=== PATIENT | female | born 1975 | race Caucasian/White ===

== ENCOUNTER 2017-11-09 16:00 | Emergency (ER) | payer OTHER ==
[2017-11-09] MEDS ORDERED: 0.9 % SODIUM CHLORIDE 1,000 ML BAG IV ONE (16:16)
[2017-11-09] MEDS ORDERED: METHYLPREDNISOLONE PF 125MG/VIAL IVP ONE (16:16)
[2017-11-09] MEDS ORDERED: DIPHENHYDRAMINE HCL IV 50 MG/ML VIAL IVP ONE (16:16)
[2017-11-09] MEDS ORDERED: LORAZEPAM 2 MG/ML VIAL IV ONE (16:16)
--- NOTE | 2017-11-09 16:22 | Emergency Department Record ---
History of Present Illness - General Chief Complaint: Chest Pain Stated Complaint: CHEST PAIN Time Seen by Provider: 11/09/17 16:11 Source: Patient Mode of Arrival: Ambulatory Limitations: No limitations - History of Present Illness Initial Comments: The patient is here due to developing a whole body rash, NIDA, and retrosternal CP after taking an Amoxicillin about 30 minutes ago. She also has had some nausea but denies any cough, congestion, or back pain. She states she has had Amox in the past and has never had any allergy issues. She describes the pain as a sharp burning retrosternally that is nonradiating. She has had no sweating with the rash or pain. The patient has multiple cardiac risk factors but has no hx of cardiac issues. The patient denies any feeling like her throat is closing or voice changes. Onset/Timin -: Minutes(s) Onset: During rest Pain Location: Substernal Pain Radiation: BRIE AVILES Severity scale (1-10): 8 Quality: Other Consistency: Constant Improves With: Nothing Worsens With: Nothing Context: Recent illness, Other Anginal Symptoms: Nausea Treatments Prior to Arrival: None - Related Data On Oral Contraceptives: (IUD) Home Medications Medication Instructions Recorded Confirmed Last Taken Alprazolam [Alprazolam] 1 mg PO ASDIR PRN 11/09/17 11/09/17 Unknown Amitriptyline HCl [Elavil] 10 mg PO ASDIR 11/09/17 11/09/17 Unknown Cyclobenzaprine HCl 10 mg PO ASDIR 11/09/17 11/09/17 Unknown Lisinopril/Hydrochlorothiazide 1 each PO DAILY 11/09/17 11/09/17 Unknown [Lisinopril-Hctz 10-12.5 mg Tab] Pantoprazole Sodium 40 mg PO DAILY 11/09/17 11/09/17 Unknown Tramadol HCl [Tramadol HCl] 50 mg PO ASDIR PRN 11/09/17 11/09/17 Unknown Allergies Allergy/AdvReac Type Severity Reaction Status Date / Time No Known Drug Allergies Allergy Verified 11/09/17 16:07 Travel Screening - Travel/Exposure Within Last 30 Days Have you traveled within the last 30 days?: No Review of Systems Constitutional: Denies: Chills, Fever Eyes: Denies: Eye discharge ENT: Reports: Ear pain. Denies: Congestion Respiratory: Denies: Cough Past Medical History - SOCIAL HISTORY Smoking Status: Never smoker Alcohol Use: None Drug Use: None - RESPIRATORY Hx Respiratory Disorders: No - CARDIOVASCULAR Hx Cardio Disorders: Yes Hx Hypertension: Yes - NEURO Hx Neuro Disorders: Yes Hx Headaches: Yes - GI Hx GI Disorders: Yes Hx Reflux: Yes - Hx Genitourinary Disorders: No - ENDOCRINE Hx Endocrine Disorders: No - MUSCULOSKELETAL Hx Musculoskeletal Disorders: Yes Hx Arthritis: Yes - PSYCH Hx Psych Problems: Yes Hx Anxiety: Yes - HEMATOLOGY/ONCOLOGY Hx Hematology/Oncology Disorders: No Family Medical History Any Significant Family History?: Yes Hx Heart Disease: Father, Mother, Brother/Sister, Grandparents Physical Exam - General General Appearance: Alert, Oriented x3, Cooperative, No acute distress - Head Head exam: Atraumatic, Normocephalic, Normal inspection - Eye Eye exam: Normal appearance, PERRL - ENT ENT exam: negative: TM's normal bilaterally (There is bilateraly erythema, effusions and a loss of landmarks on the L.) Throat exam: Normal inspection. negative: Tonsillar erythema, Tonsillar exudate - Neck Neck exam: Normal inspection, Full ROM. negative: Tenderness - Respiratory Respiratory exam: Normal lung sounds bilaterally. negative: Respiratory distress - Cardiovascular Cardiovascular Exam: Regular rate, Normal rhythm, Normal heart sounds - GI/Abdominal GI/Abdominal exam: Soft, Normal bowel sounds. negative: Tenderness - Extremities Extremities exam: Normal inspection, Full ROM, Normal capillary refill. negative: Tenderness - Neurological Neurological exam: Alert. negative: Motor sensory deficit - Skin Skin exam: Erythema (There is a diffuse body erythroderma that blanches.), Rash Course Vital Signs 11/09/17 16:01 Temperature 98.0 F Pulse Rate 124 H Respiratory 22 Rate Blood Pressure 156/80 Pulse Ox 97 - Reevaluation(s) Reevaluation #1: The patient is doing better at this time. Her pain is improving and she is feeling more relaxed. 11/09/17 16:31 Reevaluation #2: The patient is doing better. Her vitals are improved and the rash much improved. There is no nausea or NIDA but she is still having the retrosternal aching/burning. Due to the fact the patient has multiple cardiac risk factors I will order one SL NTG. 11/09/17 16:57 11/09/17 17:05 The patient is doing better after the SL NTG. The discomfort is almost gone. Reevaluation #3: The patient is doing very well at this time. Her BP and HR are very stable and the pain has resolved. 11/09/17 17:26 Reevaluation #4: I did discuss the case with Dr. Becerra and he did accept the patient as a direct admit to [facility]. 11/09/17 17:36 Medical Decision Making - Data Complexity MDM Data: Labs Ordered and/or Reviewed, X-Ray Ordered and/or Reviewed, EKG Ordered and/or Reviewed - Lab Data Result diagrams: 11/09/17 16:15 11/09/17 16:15 - EKG Data -: EKG Interpreted by Me (ST at 118. Anterior infarct old. Neg ST-T changes.) - Radiology Data Radiology results: Report reviewed (CXR: Neg per rad.) Disposition Disposition: Transfer Disposition: Acute Care Hospital Transfer Transfer To: [facility] Reason For Transfer: Cardiology Accepting Physician: Hernan Time Discussed w/Accepting Physician: 17:36 Condition: (2) Stable Forms: Patient Portal Access Time of Disposition: 17:36 Quality - Quality Measures Quality Measures: N/A - Blood Pressure Screening View Details: Yes Does Patient Have Any of the Following: Active Dx of HTN Blood Pressure Classification: Pre-Hypertensive BP Reading Systolic Measurement: 156 Diastolic Measurement: 80 Screening for High Blood Pressure: Patient Exclusion, Hx of HTN [G9744]
[2017-11-09] MEDS ORDERED: ASPIRIN 325 MG TABLET PO ONE (16:29)
[2017-11-09 16:38] LABS: HEMATOCRIT 41.5 % (35.0-47.0); HEMOGLOBIN 14.1 gm/dl (11.6-16.0); MEAN CELL VOLUME 85.7 fl (81-97); MEAN CORPUSCULAR HEMOGLOBIN 29.1 pg (27-33); MEAN PLATELET VOLUME 8.5 fl (7.4-10.4); PLATELET COUNT 376 K/uL (130-400); RED BLOOD COUNT 4.84 M/uL (3.80-5.40); RED CELL DISTRIBUTION WIDTH 14.9 % (11.5-14.5); WHITE BLOOD COUNT W/O DIFF 12.5 K/uL (4.2-12.2)
[2017-11-09] MEDS ORDERED: NITROGLYCERIN 0.4MG SL TABLET #25 BTL SL ONE (16:54)
[2017-11-09 17:00] LABS: BLOOD UREA NITROGEN 13 mg/dL (6-20); CREATININE 0.8 mg/dL (0.5-0.9); EST GLOMERULAR FILTRATION RATE > 60 mL/min; INR 0.9; PARTIAL THROMBOPLASTIN TIME 23.6 SECONDS (24.5-39.1); PROTHROMBIN TIME (PATIENT) 10.2 SECONDS (9.5-12.1)
[2017-11-09 17:03] LABS: GLUCOSE,RANDOM 150 mg/dL (74-109)
[2017-11-09 17:06] LABS: CREATINE PHOSPHOKINASE 87 U/L (26-192)
[2017-11-09 17:07] LABS: CKMB 1.9 ng/mL (<3.77)
[2017-11-09] MEDS ORDERED: MORPHINE SULFATE 5 MG/ML PFS IVP ONE (17:15)
--- NOTE | 2017-11-10 15:18 | RADIOLOGY REPORT ---
DATE: 11/09/2017. EXAM: PORTABLE CHEST. COMPARISON: None. HISTORY: Chest pain. TECHNIQUE: Portable AP upright view of the chest was performed. FINDINGS: Heart size is normal. Lung burger are clear. The osseous structures are normal. IMPRESSION: NEGATIVE CHEST EXAMINATION. JOB NUMBER: [id number] MTDD
--- NOTE | 2017-11-12 08:54 | Emergency Department Record ---
History of Present Illness - General Chief Complaint: Chest Pain Stated Complaint: CHEST PAIN Time Seen by Provider: 11/09/17 16:11 Source: Patient Mode of Arrival: Ambulatory Limitations: No limitations - History of Present Illness Onset/Timin -: Minutes(s) Onset: During rest Pain Location: Substernal Pain Radiation: RUEBRIE Severity scale (1-10): 8 Quality: Other Consistency: Constant Improves With: Nothing Worsens With: Nothing Context: Recent illness, Other Anginal Symptoms: Nausea Treatments Prior to Arrival: None - Related Data On Oral Contraceptives: (IUD) Home Medications Medication Instructions Recorded Confirmed Last Taken Alprazolam [Alprazolam] 1 mg PO ASDIR PRN 11/09/17 11/09/17 Unknown Amitriptyline HCl [Elavil] 10 mg PO ASDIR 11/09/17 11/09/17 Unknown Cyclobenzaprine HCl 10 mg PO ASDIR 11/09/17 11/09/17 Unknown Lisinopril/Hydrochlorothiazide 1 each PO DAILY 11/09/17 11/09/17 Unknown [Lisinopril-Hctz 10-12.5 mg Tab] Pantoprazole Sodium 40 mg PO DAILY 11/09/17 11/09/17 Unknown Tramadol HCl [Tramadol HCl] 50 mg PO ASDIR PRN 11/09/17 11/09/17 Unknown Allergies Allergy/AdvReac Type Severity Reaction Status Date / Time No Known Drug Allergies Allergy Verified 11/09/17 16:07 Travel Screening - Travel/Exposure Within Last 30 Days Have you traveled within the last 30 days?: No Review of Systems Constitutional: Denies: Chills, Fever Eyes: Denies: Eye discharge ENT: Reports: Ear pain. Denies: Congestion Respiratory: Denies: Cough Past Medical History - SOCIAL HISTORY Smoking Status: Never smoker Alcohol Use: None Drug Use: None - RESPIRATORY Hx Respiratory Disorders: No - CARDIOVASCULAR Hx Cardio Disorders: Yes Hx Hypertension: Yes - NEURO Hx Neuro Disorders: Yes Hx Headaches: Yes - GI Hx GI Disorders: Yes Hx Reflux: Yes - Hx Genitourinary Disorders: No - ENDOCRINE Hx Endocrine Disorders: No - MUSCULOSKELETAL Hx Musculoskeletal Disorders: Yes Hx Arthritis: Yes - PSYCH Hx Psych Problems: Yes Hx Anxiety: Yes - HEMATOLOGY/ONCOLOGY Hx Hematology/Oncology Disorders: No Family Medical History Any Significant Family History?: Yes Hx Heart Disease: Father, Mother, Brother/Sister, Grandparents Physical Exam - General Limitations: No limitations Course Vital Signs 11/09/17 11/09/17 11/09/17 16:01 16:46 17:27 Temperature 98.0 F Pulse Rate 124 H Pulse Rate [ 106 H 110 H [employer] ] Respiratory 22 18 18 Rate Blood Pressure 156/80 Blood Pressure 146/81 138/80 [Left Arm] Blood Pressure [Right Arm] Pulse Ox 97 100 100 11/09/17 11/09/17 18:57 19:40 Temperature Pulse Rate Pulse Rate [ 120 H 133 H [employer] ] Respiratory 20 20 Rate Blood Pressure Blood Pressure 139/78 [Left Arm] Blood Pressure 132/84 [Right Arm] Pulse Ox 94 L 98 Medical Decision Making - Lab Data Result diagrams: 11/09/17 16:15 11/09/17 16:15 Lab Results 11/09/17 11/09/17 11/09/17 Range/Units 16:15 16:15 16:15 WBC 12.5 H (4.2-12.2) K/uL RBC 4.84 (3.80-5.40) M/uL Hgb 14.1 (11.6-16.0) gm/dl Hct 41.5 (35.0-47.0) % MCV 85.7 (81-97) fl MCH 29.1 (27-33) pg MCHC 34.0 (32-36) g/dl RDW 14.9 H (11.5-14.5) % Plt Count 376 (130-400) K/uL MPV 8.5 (7.4-10.4) fl Neutrophils % 73.0 (47-80) % Eosinophils % Not Reportable Basophils % Not Reportable Lymphocytes 17.0 (16-45) % Monocytes 9.0 (0-9) % Eosinophil Count 1.0 (0-6) % PT 10.2 (9.5-12.1) SECONDS INR 0.9 APTT 23.6 L (24.5-39.1) SECONDS Sodium 138 (136-145) mmol/L Potassium 3.7 (3.4-4.5) mmol/L Chloride 97 L (98-107) mmol/L Carbon Dioxide 26.0 (22-29) mmol/L Anion Gap 15.0 (7-16) BUN 13 (6-20) mg/dL Creatinine 0.8 (0.5-0.9) mg/dL Estimated GFR > 60 mL/min Random Glucose 150 H (74-109) mg/dL Calcium 9.2 (8.6-10.0) mg/dL Creatine Kinase 87 (26-192) U/L CK-MB (CK-2) 1.9 (<3.77) ng/mL Troponin T < 0.010 (0-0.010) ng/mL Disposition Disposition: Transfer Clinical Impression: Chest pain at rest Disposition: Acute Care Hospital Transfer Transfer To: [facility] Reason For Transfer: Cardiology Accepting Physician: Hernan. Time Discussed w/Accepting Physician: 08:53 Condition: (2) Stable Forms: Patient Portal Access Time of Disposition: 08:53 Quality - Quality Measures Quality Measures: N/A - Blood Pressure Screening View Details: Yes Does Patient Have Any of the Following: Active Dx of HTN Blood Pressure Classification: Pre-Hypertensive BP Reading Systolic Measurement: 156 Diastolic Measurement: 80 Screening for High Blood Pressure: Patient Exclusion, Hx of HTN [G9744]
== END 2017-11-09 19:47 | disposition short-term general hospital (02) ==
LOC: ER 16:00
DX: R07.2 Precordial pain (principal); R11.0 Nausea; R06.00 Dyspnea, unspecified; R20.2 Paresthesia of skin; R21 Rash and other nonspecific skin eruption; I10 Essential (primary) hypertension
CPT/HCPCS: 99285 ×2; 96374; 96375; 82550; 85730; 85610; 82553; 80048; 84484; 85027; 71045; 93005; 93010; J2060; J2270; J1200; J2930; J7030